=== PATIENT | male | born 1965 | race African-American/Black ===

== ENCOUNTER 2018-11-17 17:36 | Emergency (ER) | payer MEDICAID ==
[~2018-11-17] VITALS: Ht 177.8 cm; Wt 90.0 kg
[2018-11-17] MEDS ORDERED: KETOROLAC 60MG/2ML VIAL IM ONE (18:30)
[2018-11-17 22:10] VITALS: BP 175/98
[2018-11-17] MEDS ORDERED: HYDROCODONE/ACETAMINOPHEN 5/325MG TABLET PO ONE (22:30)
== END 2018-11-18 00:30 | disposition home or self-care (01) ==
LOC: ER 17:36
DX: S22.32XA Fracture of one rib, left side, initial encounter for closed fracture (principal); S09.8XXA Other specified injuries of head, initial encounter; E11.9 Type 2 diabetes mellitus without complications; I10 Essential (primary) hypertension; W01.0XXA Fall on same level from slipping, tripping and stumbling without subsequent striking against object, initial encounter; Y93.89 Activity, other specified; Y92.89 Other specified places as the place of occurrence of the external cause; Y99.8 Other external cause status
CPT/HCPCS: 70450; 71045; 71250; 72125; 96372; 99284; J1885

== ENCOUNTER 2019-06-09 17:12 | Inpatient (IN) | payer MEDICAID ==
[~2019-06-09] VITALS: Ht 175.3 cm; Wt 95.3 kg
[2019-06-09] MEDS ORDERED: CLINDAMYCIN 900 MG in DEXTROSE 5% WATER 50 ML IV ONE (23:15)
[2019-06-09] MEDS ORDERED: SODIUM CHLORIDE 0.9% 500 ML IV ONE (23:15)
[2019-06-09] MEDS ORDERED: CLONIDINE 0.3MG TABLET PO ONE (23:15)
[2019-06-09] MEDS ORDERED: HYDROCODONE/ACETAMINOPHEN 5/325MG TABLET PO ONE (23:15)
[2019-06-09] MEDS ORDERED: KETOROLAC 30MG/ML VIAL IV ONE (23:15)
[2019-06-09 23:34] LABS: CHLORIDE 100 mEq/L (98-107)
[2019-06-09 23:36] LABS: BASOPHILS % 1.1 % (0.0-2.0); EOSINOPHILS % 4.2 % (0.0-5.0); HEMATOCRIT. 36.1 % (42.0-52.0); HEMOGLOBIN. 11.9 g/dL (14.0-18.0); LYMPHOCYTES % 31.6 % (20.0-50.0); MEAN CORPUSCULAR HEMOGLOBIN 28.3 pg (28.0-32.0); MEAN CORPUSCULAR VOLUME 85.7 fL (80.0-94.0); MONOCYTES % 12.6 % (2.0-8.0); NEUTROPHILS % 50.5 % (40.0-76.0); PLATELET 195 x1000/uL (130-400); RED BLOOD CELL COUNT 4.22 mill/uL (4.7-6.1); RED CELL DISTRIBUTION WIDTH 13.5 % (11.6-14.6)
[2019-06-10] MEDS ORDERED: SODIUM CHLORIDE 0.9% 1,000 ML IV ONE (03:00)
[2019-06-10] MEDS ORDERED: INSULIN LISPRO 100 UNITS/ML SUBCUT ONE (03:00)
[2019-06-10] MEDS ORDERED: FUROSEMIDE 20MG/2ML VIAL IVP ONE (04:45)
[2019-06-10] MEDS ORDERED: DEXTROSE 50% WATER 50ML SYRINGE IV PRN (10:00)
[2019-06-10 10:26] VITALS: BP 132/85
[2019-06-10 12:00] VITALS: BP 131/85
[2019-06-10] MEDS: BLOOD SUGAR DIAGNOSTIC STRIP TEST SCH ×3 (12:40→21:00)
[2019-06-10] MEDS: INSULIN LISPRO 100 UNITS/ML SUBCUT SCH ×3 (14:14→21:00)
[2019-06-10 16:00] VITALS: BP 123/65
[2019-06-10] MEDS ORDERED: ACETAMINOPHEN 325MG TABLET PO PRN (16:15)
[2019-06-10] MEDS ORDERED: ONDANSETRON HCL 4MG/2ML INJ IV PRN (16:15)
[2019-06-10] MEDS ORDERED: LORAZEPAM 0.5MG TABLET PO PRN (16:15)
[2019-06-10] MEDS ORDERED: DOCUSATE SODIUM 100MG CAPSULE PO PRN (16:15)
[2019-06-10] MEDS ORDERED: HYDROCODONE/ACETAMINOPHEN 5/325MG TABLET PO PRN (16:15)
[2019-06-10] MEDS ORDERED: CLONIDINE 0.1MG TABLET PO PRN (16:15)
[2019-06-10] MEDS ORDERED: IPRATROPIUM/ALBUTEROL 0.5-3(2.5)MG/3ML NEB INH PRN (16:15)
[2019-06-10] MEDS: LISINOPRIL 5MG TABLET PO SCH (16:53)
[2019-06-10] MEDS ORDERED: PNEUMOCOCCAL 23-VAL P-SAC VAC 0.5 ML IM ONE (19:00)
[2019-06-10 19:40] LABS: CREATINE KINASE MB FRACTION 2.8 ng/mL (0.5-3.6)
[2019-06-10 20:00] VITALS: BP 131/75
[2019-06-10 20:23] LABS: CLARITY URINE CLEAR (CLEAR); COLOR URINE YELLOW (YELLOW); KETONES URINE NEGATIVE (NEGATIVE); LEUKOCYTE ESTERASE URINE NEGATIVE (NEGATIVE); NITRITE URINE NEGATIVE (NEGATIVE); OCCULT BLOOD URINE TRACE (NEGATIVE); PH URINE 7.5 (4.5-8.0); PROTEIN URINE 3+ (NEGATIVE); UROBILINOGEN URINE 0.2 E.U./dL (0.2-1.0)
[2019-06-10 20:49] LABS: *AMPHETAMINES SCREEN URINE NEGATIVE (NEGATIVE); *BARBITURATES SCREEN URINE NEGATIVE (NEGATIVE); *BENZODIAZEPINES SCREEN URINE NEGATIVE (NEGATIVE); *COCAINE SCREEN URINE NEGATIVE (NEGATIVE); METHADONE URINE SCREEN NEGATIVE (NEGATIVE); OPIATES URINE SCREEN NEGATIVE (NEGATIVE)
[2019-06-10 20:50] LABS: CANNABINOID URINE SCREEN NEGATIVE (NEGATIVE); PHENCYCLIDINE URINE SCREEN NEGATIVE (NEGATIVE)
[2019-06-10] MEDS: INSULIN GLARGINE UD 100 UNITS/ML SYR SUBCUT SCH (22:29)
[2019-06-11 00:05] VITALS: BP 127/69
[2019-06-11 04:00] VITALS: BP 132/69
[2019-06-11 05:32] LABS: CHLORIDE 104 mEq/L (98-107)
[2019-06-11 06:10] LABS: BASOPHILS % 1.1 % (0.0-2.0); EOSINOPHILS % 5.8 % (0.0-5.0); HEMATOCRIT. 34.7 % (42.0-52.0); HEMOGLOBIN. 11.6 g/dL (14.0-18.0); LYMPHOCYTES % 33.5 % (20.0-50.0); MEAN CORPUSCULAR HEMOGLOBIN 28.8 pg (28.0-32.0); MEAN CORPUSCULAR VOLUME 86.2 fL (80.0-94.0); MONOCYTES % 10.7 % (2.0-8.0); NEUTROPHILS % 48.9 % (40.0-76.0); PLATELET 189 x1000/uL (130-400); RED BLOOD CELL COUNT 4.02 mill/uL (4.7-6.1); RED CELL DISTRIBUTION WIDTH 13.2 % (11.6-14.6)
[2019-06-11] MEDS: BLOOD SUGAR DIAGNOSTIC STRIP TEST SCH ×2 (07:37→13:18)
[2019-06-11 08:00] VITALS: BP 156/76
[2019-06-11] MEDS: LISINOPRIL 5MG TABLET PO SCH (09:23)
[2019-06-11] MEDS: INSULIN LISPRO 100 UNITS/ML SUBCUT SCH ×2 (09:24→13:34)
[2019-06-11] MEDS: INSULIN GLARGINE UD 100 UNITS/ML SYR SUBCUT SCH (10:22)
[2019-06-11] MEDS ORDERED: ATOR20TA65 MT (13:53)
[2019-06-11] MEDS ORDERED: LANTUSUD SUBCUT (13:53)
[2019-06-11] MEDS ORDERED: LISI-186 PO (13:53)
[2019-06-11] MEDS ORDERED: METF-414 MT (13:53)
[2019-06-11 16:33] VITALS: BP 152/87
== END 2019-06-11 18:29 | disposition home or self-care (01) | DRG 361 ==
LOC: ER 17:12 → 7WST 06-10 02:52 → ENRESERV 06-10 07:00
PROVIDERS: ADMIT Internal Medicine; ATTEND Internal Medicine
PROC: 0KBV0ZZ Excision of Right Foot Muscle, Open Approach (ICD-10-PCS; principal; 2019-06-11)
PROC: 0HBMXZZ Excision of Right Foot Skin, External Approach (ICD-10-PCS; 2019-06-11)
PROC: 0HBMXZZ Excision of Right Foot Skin, External Approach (ICD-10-PCS; 2019-06-11)
PROC: 0HBMXZZ Excision of Right Foot Skin, External Approach (ICD-10-PCS; 2019-06-11)
PROC: 0HBMXZZ Excision of Right Foot Skin, External Approach (ICD-10-PCS; 2019-06-11)
DX: E11.621 Type 2 diabetes mellitus with foot ulcer (principal); L97.509 Non-pressure chronic ulcer of other part of unspecified foot with unspecified severity; E11.42 Type 2 diabetes mellitus with diabetic polyneuropathy; E66.01 Morbid (severe) obesity due to excess calories; E11.65 Type 2 diabetes mellitus with hyperglycemia; I42.9 Cardiomyopathy, unspecified; E87.5 Hyperkalemia; E78.5 Hyperlipidemia, unspecified; D64.9 Anemia, unspecified; I10 Essential (primary) hypertension; J98.11 Atelectasis; D72.821 Monocytosis (symptomatic); I16.1 Hypertensive emergency; S90.414A Abrasion, right lesser toe(s), initial encounter; W18.39XA Other fall on same level, initial encounter; R79.89 Other specified abnormal findings of blood chemistry; L08.9 Local infection of the skin and subcutaneous tissue, unspecified; Z68.31 Body mass index [BMI] 31.0-31.9, adult; Z79.4 Long term (current) use of insulin; Z79.899 Other long term (current) drug therapy; Z79.84 Long term (current) use of oral hypoglycemic drugs; Z86.73 Personal history of transient ischemic attack (TIA), and cerebral infarction without residual deficits; Z71.3 Dietary counseling and surveillance; Z91.81 History of falling; Y93.89 Activity, other specified; Y92.89 Other specified places as the place of occurrence of the external cause; Y99.8 Other external cause status
CPT/HCPCS: 36415; 71045; 73630; 73721; 80048; 80061; 80305; 82550; 82553; 82728; 82962; 83036; 83540; 83550; 83880; 84132; 84443; 84484; 87070; 87075; 90732; 93005; 93306; 96374; 99285; J1815; J1885; J1940; J3490; J7040; J7060

== ENCOUNTER 2019-07-12 13:50 | Inpatient (IN) | payer MEDICAID ==
[~2019-07-12] VITALS: Ht 175.3 cm; Wt 111.1 kg
[~2019-07-12 13:50] MED LIST: ATOR20TA65 MT; LANTUSUD SUBCUT; LISI-186 PO; METF-414 MT
[2019-07-12 16:04] LABS: BASOPHILS % 0.7 % (0.0-2.0); EOSINOPHILS % 5.2 % (0.0-5.0); HEMATOCRIT. 32.6 % (42.0-52.0); HEMOGLOBIN. 10.8 g/dL (14.0-18.0); LYMPHOCYTES % 29.4 % (20.0-50.0); MEAN CORPUSCULAR HEMOGLOBIN 28.1 pg (28.0-32.0); MEAN CORPUSCULAR VOLUME 84.8 fL (80.0-94.0); MEAN PLATELET VOLUME 9.1 fl (7.4-10.4); MONOCYTES % 9.6 % (2.0-8.0); NEUTROPHILS % 55.1 % (40.0-76.0); PLATELET 197 x1000/uL (130-400); RED BLOOD CELL COUNT 3.85 mill/uL (4.7-6.1); RED CELL DISTRIBUTION WIDTH 13.6 % (11.6-14.6)
[2019-07-12 16:09] LABS: CHLORIDE 108 mEq/L (98-107)
[2019-07-12] MEDS ORDERED: PIPERACILLIN/TAZ 3.375G PREMIX 50 ML IV ONE (16:30)
[2019-07-12] MEDS ORDERED: SODIUM CHLORIDE 0.9% 1000ML BAG (SEPSIS BOLUS) IV ONE (16:30)
[2019-07-12] MEDS ORDERED: VANCOMYCIN 1 G PREMIX 200 ML IV SCH (16:30)
[2019-07-12 17:20] LABS: D-DIMER 0.57 mg/L FEU (<0.50)
[2019-07-12] MEDS ORDERED: ONDANSETRON HCL 4MG/2ML INJ IV PRN (18:00)
[2019-07-12] MEDS ORDERED: LORAZEPAM 0.5MG TABLET PO PRN (18:00)
[2019-07-12] MEDS ORDERED: IPRATROPIUM/ALBUTEROL 0.5-3(2.5)MG/3ML NEB INH PRN (18:00)
[2019-07-12] MEDS ORDERED: ACETAMINOPHEN 325MG TABLET PO PRN (18:00)
[2019-07-12 19:15] VITALS: BP 175/98
[2019-07-12] MEDS ORDERED: IOHEXOL-350 100 ML BOTTLE ONE (19:25)
[2019-07-12] MEDS ORDERED: FUROSEMIDE 40MG/4ML VIAL IVP SCH (19:45)
[2019-07-12 20:00] VITALS: BP 175/98
[2019-07-12] MEDS: ATORVASTATIN CALCIUM 20MG TABLET PO SCH (21:43)
[2019-07-12] MEDS: LISINOPRIL 5MG TABLET PO SCH (21:44)
[2019-07-12] MEDS: HYDROCODONE/ACETAMINOPHEN 5/325MG TABLET PO PRN (21:45)
[2019-07-12 21:50] LABS: CLARITY URINE CLEAR (CLEAR); COLOR URINE YELLOW (YELLOW); KETONES URINE NEGATIVE (NEGATIVE); LEUKOCYTE ESTERASE URINE NEGATIVE (NEGATIVE); NITRITE URINE NEGATIVE (NEGATIVE); OCCULT BLOOD URINE 1+ (NEGATIVE); PROTEIN URINE 3+ (NEGATIVE); SPECIFIC GRAVITY URINE 1.018 (1.005-1.030); UROBILINOGEN URINE 0.2 E.U./dL (0.2-1.0)
[2019-07-12 22:08] LABS: *AMPHETAMINES SCREEN URINE NEGATIVE (NEGATIVE); *BARBITURATES SCREEN URINE NEGATIVE (NEGATIVE); *BENZODIAZEPINES SCREEN URINE NEGATIVE (NEGATIVE)
[2019-07-12 22:09] LABS: *COCAINE SCREEN URINE NEGATIVE (NEGATIVE); METHADONE URINE SCREEN NEGATIVE (NEGATIVE); OPIATES URINE SCREEN NEGATIVE (NEGATIVE); PHENCYCLIDINE URINE SCREEN NEGATIVE (NEGATIVE)
[2019-07-12 22:10] LABS: CANNABINOID URINE SCREEN NEGATIVE (NEGATIVE)
[2019-07-12] MEDS: CLONIDINE 0.1MG TABLET PO PRN (23:31)
[2019-07-13] VITALS: BP 178/108
[2019-07-13 04:00] VITALS: BP 144/90
[2019-07-13] MEDS ORDERED: DEXTROSE 50% WATER 50ML SYRINGE IV PRN (04:45)
[2019-07-13 06:27] LABS: BASOPHILS % 1.5 % (0.0-2.0); EOSINOPHILS % 4.9 % (0.0-5.0); HEMATOCRIT. 32.9 % (42.0-52.0); HEMOGLOBIN. 10.8 g/dL (14.0-18.0); LYMPHOCYTES % 28.1 % (20.0-50.0); MEAN CORPUSCULAR HEMOGLOBIN 28.1 pg (28.0-32.0); MEAN CORPUSCULAR VOLUME 85.4 fL (80.0-94.0); MEAN PLATELET VOLUME 9.2 fl (7.4-10.4); MONOCYTES % 10.9 % (2.0-8.0); NEUTROPHILS % 54.6 % (40.0-76.0); PLATELET 190 x1000/uL (130-400); RED BLOOD CELL COUNT 3.85 mill/uL (4.7-6.1); RED CELL DISTRIBUTION WIDTH 13.7 % (11.6-14.6)
[2019-07-13] MEDS: VANCOMYCIN 1 G PREMIX 200 ML IV SCH ×2 (06:29→18:27)
[2019-07-13 06:36] LABS: CHLORIDE 109 mEq/L (98-107)
[2019-07-13] MEDS: BLOOD SUGAR DIAGNOSTIC STRIP TEST SCH ×4 (06:48→21:10)
[2019-07-13] MEDS: INSULIN LISPRO 100 UNITS/ML SUBCUT SCH ×4 (06:53→21:09)
[2019-07-13 08:00] VITALS: BP 142/83
[2019-07-13] MEDS ORDERED: FUROSEMIDE 40MG/4ML VIAL IVP SCH (09:00)
[2019-07-13] MEDS: LISINOPRIL 5MG TABLET PO SCH (09:03)
[2019-07-13] MEDS: ENOXAPARIN 30MG/0.3ML SYR SUBCUT SCH ×2 (09:04→21:09)
[2019-07-13] MEDS ORDERED: INSULIN GLARGINE UD 100 UNITS/ML SYR SUBCUT SCH (10:00)
[2019-07-13 12:00] VITALS: BP 147/81
[2019-07-13] MEDS: HYDROCODONE/ACETAMINOPHEN 5/325MG TABLET PO PRN ×2 (15:12→21:10)
[2019-07-13] MEDS ORDERED: LISI10TA5 MT (15:37)
[2019-07-13] MEDS ORDERED: ASPI-1158 MT (15:37)
[2019-07-13] MEDS ORDERED: FURO20TA4 MT (15:37)
[2019-07-13 16:00] VITALS: BP 140/84
[2019-07-13] MEDS: FUROSEMIDE 40MG/4ML VIAL IVP SCH (18:27)
[2019-07-13 20:00] VITALS: BP 182/101
[2019-07-13] MEDS: ATORVASTATIN CALCIUM 20MG TABLET PO SCH (21:09)
[2019-07-13] MEDS: CLONIDINE 0.1MG TABLET PO PRN (21:10)
[2019-07-14] VITALS: BP 141/78
[2019-07-14 04:00] VITALS: BP 153/91
[2019-07-14 05:41] LABS: CHLORIDE 104 mEq/L (98-107)
[2019-07-14 05:54] LABS: VANCOMYCIN TROUGH 13.8 ug/mL (5.0-10.0)
[2019-07-14] MEDS: VANCOMYCIN 1 G PREMIX 200 ML IV SCH (06:08)
[2019-07-14] MEDS: BLOOD SUGAR DIAGNOSTIC STRIP TEST SCH ×2 (06:10→11:41)
[2019-07-14] MEDS: INSULIN LISPRO 100 UNITS/ML SUBCUT SCH ×2 (06:16→12:20)
[2019-07-14 08:17] VITALS: BP 163/100
[2019-07-14] MEDS: HYDROCODONE/ACETAMINOPHEN 5/325MG TABLET PO PRN (08:26)
[2019-07-14] MEDS: LISINOPRIL 5MG TABLET PO SCH (08:26)
[2019-07-14] MEDS: FUROSEMIDE 40MG/4ML VIAL IVP SCH (08:26)
[2019-07-14] MEDS: ENOXAPARIN 30MG/0.3ML SYR SUBCUT SCH (08:27)
[2019-07-14] MEDS ORDERED: INSULIN GLARGINE UD 100 UNITS/ML SYR SUBCUT SCH (11:00)
[2019-07-14 12:00] VITALS: BP 179/106
[2019-07-14] MEDS: CLONIDINE 0.1MG TABLET PO PRN (14:36)
[2019-07-14 14:37] VITALS: BP 152/96
[2019-07-14] MEDS ORDERED: LISINOPRIL 10MG TABLET PO SCH (21:00)
[2019-07-15] MEDS ORDERED: FUROSEMIDE 40MG TABLET PO SCH (09:00)
== END 2019-07-14 15:18 | disposition home or self-care (01) | DRG 383 ==
LOC: ER 13:50 → 5WST 17:19 → EDBEDREQ 17:22 → ENRESERV 17:40 → CANRESERV 17:40
PROVIDERS: ADMIT Internal Medicine; ATTEND Internal Medicine
PROC: 0JBQ0ZZ Excision of Right Foot Subcutaneous Tissue and Fascia, Open Approach (ICD-10-PCS; principal; 2019-07-13)
DX: L03.115 Cellulitis of right lower limb (principal); I50.33 Acute on chronic diastolic (congestive) heart failure; E46 Unspecified protein-calorie malnutrition; E11.621 Type 2 diabetes mellitus with foot ulcer; E11.42 Type 2 diabetes mellitus with diabetic polyneuropathy; E87.2 Acidosis; E66.01 Morbid (severe) obesity due to excess calories; E87.5 Hyperkalemia; I11.0 Hypertensive heart disease with heart failure; E11.65 Type 2 diabetes mellitus with hyperglycemia; E78.5 Hyperlipidemia, unspecified; X58.XXXA Exposure to other specified factors, initial encounter; D72.821 Monocytosis (symptomatic); S90.811A Abrasion, right foot, initial encounter; I16.1 Hypertensive emergency; I87.8 Other specified disorders of veins; J98.11 Atelectasis; D64.9 Anemia, unspecified; E86.0 Dehydration; I25.10 Atherosclerotic heart disease of native coronary artery without angina pectoris; Z79.4 Long term (current) use of insulin; Z86.73 Personal history of transient ischemic attack (TIA), and cerebral infarction without residual deficits; Y93.89 Activity, other specified; Y92.89 Other specified places as the place of occurrence of the external cause; Y99.8 Other external cause status; Z71.3 Dietary counseling and surveillance; Z68.36 Body mass index [BMI] 36.0-36.9, adult
CPT/HCPCS: 36415; 71045; 71275; 80048; 80061; 80202; 80305; 81003; 82728; 82962; 83036; 83540; 83550; 83605; 83880; 84145; 84484; 85379; 86850; 86900; 93005; 93923; 93970; 96365; 99291; J1650; J1815; J1940; J2543; J3370; J7030; Q9967

== ENCOUNTER 2019-08-31 15:09 | Emergency (ER) | payer MEDICAID ==
[~2019-08-31] VITALS: Ht 175.3 cm; Wt 96.0 kg
[~2019-08-31 15:09] MED LIST changes: +ASPI-1158 MT; +FURO20TA4 MT; -LISI-186 PO; +LISI10TA5 MT
[2019-08-31] MEDS ORDERED: CEFTRIAXONE SODIUM 1 G/VIAL IM ONE (18:30)
[2019-08-31] MEDS ORDERED: LIDOCAINE HCL 1% 20ML VIAL (Pyxis) INJ INFIL ONE (18:45)
[2019-08-31 19:12] VITALS: BP 169/92
== END 2019-08-31 19:14 | disposition home or self-care (01) ==
LOC: ER 15:09
DX: L03.115 Cellulitis of right lower limb (principal); I73.9 Peripheral vascular disease, unspecified; I87.2 Venous insufficiency (chronic) (peripheral); E11.22 Type 2 diabetes mellitus with diabetic chronic kidney disease; N18.9 Chronic kidney disease, unspecified; Z79.82 Long term (current) use of aspirin; Z79.84 Long term (current) use of oral hypoglycemic drugs
CPT/HCPCS: 93970; 96372; 99284; J0696; J3490; Z7610

== ENCOUNTER 2019-09-26 14:56 | Emergency (ER) | payer MEDICAID ==
[~2019-09-26] VITALS: Ht 175.3 cm; Wt 111.0 kg
[2019-09-26] MEDS ORDERED: VANCOMYCIN 1 G PREMIX 200 ML IV ONE (17:30)
[2019-09-26] MEDS ORDERED: PIPERACILLIN/TAZ 3.375G PREMIX 50 ML IV ONE (17:30)
[2019-09-26 18:10] LABS: BASOPHILS % 1.8 % (0.0-2.0); EOSINOPHILS % 3.4 % (0.0-5.0); HEMATOCRIT. 34.5 % (42.0-52.0); HEMOGLOBIN. 11.2 g/dL (14.0-18.0); LYMPHOCYTES % 17.9 % (20.0-50.0); MEAN CORPUSCULAR HEMOGLOBIN 27.6 pg (28.0-32.0); MEAN CORPUSCULAR VOLUME 84.8 fL (80.0-94.0); MEAN PLATELET VOLUME 10.3 fl (7.4-10.4); MONOCYTES % 7.7 % (2.0-8.0); NEUTROPHILS % 69.2 % (40.0-76.0); PLATELET 227 x1000/uL (130-400); RED BLOOD CELL COUNT 4.07 mill/uL (4.7-6.1); RED CELL DISTRIBUTION WIDTH 13.5 % (11.6-14.6)
[2019-09-26 18:14] LABS: CLARITY URINE CLEAR (CLEAR); COLOR URINE YELLOW (YELLOW); KETONES URINE NEGATIVE (NEGATIVE); LEUKOCYTE ESTERASE URINE NEGATIVE (NEGATIVE); NITRITE URINE NEGATIVE (NEGATIVE); OCCULT BLOOD URINE NEGATIVE (NEGATIVE); PROTEIN URINE 3+ (NEGATIVE); UROBILINOGEN URINE 0.2 E.U./dL (0.2-1.0)
[2019-09-26 18:17] LABS: INR 0.9; PROTHROMBIN TIME 9.7 sec (9.6-11.0)
[2019-09-26 18:18] LABS: CHLORIDE 93 mEq/L (98-107)
[2019-09-26] MEDS ORDERED: SODIUM CHLORIDE 0.9% 1,000 ML IV ONE ×2 (18:30)
[2019-09-26] MEDS ORDERED: ASPIRIN 81MG TABLET PO ONE (19:00)
[2019-09-26] MEDS ORDERED: HEPARIN 5000 UNITS/ML VIAL IV NR (19:00)
[2019-09-26] MEDS ORDERED: INSULIN LISPRO 100 UNITS/ML SUBCUT ONE (19:15)
[2019-09-26] MEDS ORDERED: LABETALOL 5MG/ML SYR 20 MG/4 ML SYRINGE IV ONE (19:15)
[2019-09-26] MEDS ORDERED: MORPHINE SULFATE 4 MG/ML CPJ (NOT FOR IM USE) IV ONE (19:15)
[2019-09-26 19:20] VITALS: BP 159/109
== END 2019-09-26 19:33 | disposition short-term general hospital (02) ==
LOC: ER 14:56 → CANBEDREQ 19:02 → ER 19:33
DX: I21.3 ST elevation (STEMI) myocardial infarction of unspecified site (principal); E11.621 Type 2 diabetes mellitus with foot ulcer; E11.65 Type 2 diabetes mellitus with hyperglycemia; A41.9 Sepsis, unspecified organism; I16.1 Hypertensive emergency; M79.10 Myalgia, unspecified site; Z79.899 Other long term (current) drug therapy
CPT/HCPCS: 36415; 71045; 73630; 80053; 81003; 83605; 84145; 85025; 85610; 85651; 86140; 87040; 87086; 93005; 96365; 96366; 96372; 96375; 99285; J1644; J1815; J2270; J2543; J3370; J3490; J7030; Z7610

== ENCOUNTER 2019-09-29 09:05 | Inpatient (IN) | payer MEDICAID ==
[~2019-09-29] VITALS: Ht 175.3 cm; Wt 98.0 kg
[2019-09-29 10:24] LABS: BASOPHILS % 0.4 % (0.0-2.0); EOSINOPHILS % 4.3 % (0.0-5.0); HEMATOCRIT. 38.3 % (42.0-52.0); HEMOGLOBIN. 12.5 g/dL (14.0-18.0); LYMPHOCYTES % 26.6 % (20.0-50.0); MEAN CORPUSCULAR HEMOGLOBIN 27.2 pg (28.0-32.0); MEAN CORPUSCULAR VOLUME 83.4 fL (80.0-94.0); MEAN PLATELET VOLUME 10.1 fl (7.4-10.4); NEUTROPHILS % 61.7 % (40.0-76.0); PLATELET 258 x1000/uL (130-400); RED BLOOD CELL COUNT 4.59 mill/uL (4.7-6.1); RED CELL DISTRIBUTION WIDTH 13.7 % (11.6-14.6)
[2019-09-29 10:31] LABS: CHLORIDE 100 mEq/L (98-107)
[2019-09-29 10:32] LABS: PROTHROMBIN TIME 10.2 sec (9.6-11.0)
[2019-09-29] MEDS ORDERED: SODIUM CHLORIDE 0.9% 1,000 ML IV ONE (11:19)
[2019-09-29] MEDS ORDERED: VANCOMYCIN 1 G PREMIX 200 ML IV SCH (12:15)
[2019-09-29] MEDS ORDERED: INSULIN REGULAR (HUMULIN R) 300UNITS/3ML IV ONE (13:45)
[2019-09-29 18:24] VITALS: BP 147/68
[2019-09-29] MEDS ORDERED: DEXTROSE 50% WATER 50ML SYRINGE IV PRN (19:00)
[2019-09-29 20:00] VITALS: BP 169/91
[2019-09-29 20:30] VITALS: BP 151/88
[2019-09-29] MEDS: ENOXAPARIN 30MG/0.3ML SYR SUBCUT SCH (20:39)
[2019-09-29] MEDS: ATORVASTATIN CALCIUM 20MG TABLET PO SCH (20:39)
[2019-09-29] MEDS: LISINOPRIL 10MG TABLET PO SCH (20:40)
[2019-09-29] MEDS: HYDROCODONE/ACETAMINOPHEN 5/325MG TABLET PO PRN (20:41)
[2019-09-29] MEDS: BLOOD SUGAR DIAGNOSTIC STRIP TEST SCH (20:42)
[2019-09-29] MEDS: INSULIN LISPRO 100 UNITS/ML SUBCUT SCH (20:42)
[2019-09-29] MEDS: VANCOMYCIN 1250MG in DEXTROSE 5% WATER 250ML IV SCH (21:46)
[2019-09-30] VITALS: BP 121/69
[2019-09-30 04:00] VITALS: BP 130/80
[2019-09-30] MEDS: CEFTRIAXONE 2 G in DEXTROSE 5% WATER 50 ML IV SCH (05:59)
[2019-09-30 06:00] LABS: BASOPHILS % 1.6 % (0.0-2.0); EOSINOPHILS % 5.5 % (0.0-5.0); HEMATOCRIT. 33.9 % (42.0-52.0); HEMOGLOBIN. 11.8 g/dL (14.0-18.0); LYMPHOCYTES % 40.7 % (20.0-50.0); MEAN CORPUSCULAR HEMOGLOBIN 28.8 pg (28.0-32.0); MEAN CORPUSCULAR VOLUME 82.6 fL (80.0-94.0); MONOCYTES % 10.5 % (2.0-8.0); NEUTROPHILS % 41.7 % (40.0-76.0); PLATELET 224 x1000/uL (130-400); RED CELL DISTRIBUTION WIDTH 13.7 % (11.6-14.6)
[2019-09-30] MEDS ORDERED: CEFTRIAXONE 2 G in DEXTROSE 5% WATER 50 ML IV SCH (06:00)
[2019-09-30 06:21] LABS: CHLORIDE 101 mEq/L (98-107)
[2019-09-30 06:31] LABS: LDL CHOLESTEROL 92 mg/dL (5-100)
[2019-09-30 06:33] LABS: HDL CHOLESTEROL 35 mg/dL (40-59)
[2019-09-30] MEDS: BLOOD SUGAR DIAGNOSTIC STRIP TEST SCH ×4 (07:32→21:28)
[2019-09-30 08:00] VITALS: BP 124/82
[2019-09-30] MEDS: INSULIN LISPRO 100 UNITS/ML SUBCUT SCH ×4 (08:39→21:23)
[2019-09-30] MEDS: ASPIRIN 81MG EC TABLET PO SCH (08:40)
[2019-09-30] MEDS: FUROSEMIDE 20MG TABLET PO SCH (08:40)
[2019-09-30] MEDS: ENOXAPARIN 30MG/0.3ML SYR SUBCUT SCH ×2 (08:40→21:21)
[2019-09-30] MEDS: LISINOPRIL 10MG TABLET PO SCH ×2 (08:40→21:22)
[2019-09-30] MEDS: INSULIN GLARGINE UD 100 UNITS/ML SYR SUBCUT SCH (10:55)
[2019-09-30 12:00] VITALS: BP 124/82
[2019-09-30] MEDS: VANCOMYCIN 1250MG in DEXTROSE 5% WATER 250ML IV SCH (15:39)
[2019-09-30 15:49] VITALS: BP 106/58
[2019-09-30] MEDS: HYDROCODONE/ACETAMINOPHEN 5/325MG TABLET PO PRN (17:30)
[2019-09-30 20:14] VITALS: BP 119/73
[2019-09-30] MEDS: ATORVASTATIN CALCIUM 20MG TABLET PO SCH (21:29)
[2019-10-01] VITALS (7 sets, daily range): BP systolic 109–147; BP diastolic 50–98
[2019-10-01] MEDS: HYDROCODONE/ACETAMINOPHEN 5/325MG TABLET PO PRN ×3 (01:05→21:28)
[2019-10-01] MEDS: CEFTRIAXONE 2 G in DEXTROSE 5% WATER 50 ML IV SCH (05:11)
[2019-10-01 06:44] LABS: CHLORIDE 103 mEq/L (98-107)
[2019-10-01] MEDS: BLOOD SUGAR DIAGNOSTIC STRIP TEST SCH ×4 (06:49→21:28)
[2019-10-01] MEDS: FUROSEMIDE 20MG TABLET PO SCH (09:40)
[2019-10-01] MEDS: ENOXAPARIN 30MG/0.3ML SYR SUBCUT SCH ×2 (09:40→21:27)
[2019-10-01] MEDS: VANCOMYCIN 1250MG in DEXTROSE 5% WATER 250ML IV SCH (09:40)
[2019-10-01] MEDS: ASPIRIN 81MG EC TABLET PO SCH (09:40)
[2019-10-01] MEDS: LISINOPRIL 10MG TABLET PO SCH ×2 (09:41→21:28)
[2019-10-01] MEDS: INSULIN LISPRO 100 UNITS/ML SUBCUT SCH ×4 (09:51→21:30)
[2019-10-01] MEDS: INSULIN GLARGINE UD 100 UNITS/ML SYR SUBCUT SCH (10:06)
[2019-10-01] MEDS: ATORVASTATIN CALCIUM 20MG TABLET PO SCH (21:28)
[2019-10-02 00:05] VITALS: BP 117/60
[2019-10-02] MEDS: VANCOMYCIN 1250MG in DEXTROSE 5% WATER 250ML IV SCH ×2 (03:01→21:21)
[2019-10-02 04:00] VITALS: BP 141/80
[2019-10-02] MEDS: CEFTRIAXONE 2 G in DEXTROSE 5% WATER 50 ML IV SCH (05:20)
[2019-10-02] MEDS: BLOOD SUGAR DIAGNOSTIC STRIP TEST SCH ×4 (06:39→21:18)
[2019-10-02 07:26] LABS: BASOPHILS % 1.3 % (0.0-2.0); EOSINOPHILS % 6.4 % (0.0-5.0); HEMATOCRIT. 33.2 % (42.0-52.0); HEMOGLOBIN. 10.9 g/dL (14.0-18.0); LYMPHOCYTES % 45.7 % (20.0-50.0); MEAN CORPUSCULAR VOLUME 81.9 fL (80.0-94.0); MEAN PLATELET VOLUME 9.6 fl (7.4-10.4); MONOCYTES % 9.5 % (2.0-8.0); NEUTROPHILS % 37.1 % (40.0-76.0); PLATELET 223 x1000/uL (130-400); RED BLOOD CELL COUNT 4.05 mill/uL (4.7-6.1); RED CELL DISTRIBUTION WIDTH 13.4 % (11.6-14.6)
[2019-10-02 08:40] VITALS: BP 104/70
[2019-10-02] MEDS ORDERED: SODIUM BICARBONATE 4% (2.4MEQ) 5ML VIAL IV ONE (10:53)
[2019-10-02] MEDS ORDERED: LIDOCAINE HCL 1% 20ML VIAL (Pyxis) INJ ONE (10:53)
[2019-10-02] MEDS: ENOXAPARIN 30MG/0.3ML SYR SUBCUT SCH ×2 (11:52→21:20)
[2019-10-02] MEDS: FUROSEMIDE 20MG TABLET PO SCH (11:53)
[2019-10-02] MEDS: ASPIRIN 81MG EC TABLET PO SCH (11:54)
[2019-10-02] MEDS: LISINOPRIL 10MG TABLET PO SCH ×2 (11:54→21:17)
[2019-10-02] MEDS: HYDROCODONE/ACETAMINOPHEN 5/325MG TABLET PO PRN (11:54)
[2019-10-02] MEDS: INSULIN GLARGINE UD 100 UNITS/ML SYR SUBCUT SCH (11:55)
[2019-10-02] MEDS: INSULIN LISPRO 100 UNITS/ML SUBCUT SCH ×4 (12:00→21:16)
[2019-10-02 12:27] VITALS: BP 131/69
[2019-10-02] MEDS ORDERED: HEPARIN 100 UNITS/1 ML VIAL IVF PRN (12:45)
[2019-10-02 16:39] VITALS: BP 133/85
[2019-10-02 20:00] VITALS: BP 152/86
[2019-10-02] MEDS: ATORVASTATIN CALCIUM 20MG TABLET PO SCH (21:17)
[2019-10-03 00:44] VITALS: BP 133/80
[2019-10-03 04:00] VITALS: BP 132/65
[2019-10-03] MEDS: CEFTRIAXONE 2 G in DEXTROSE 5% WATER 50 ML IV SCH (06:26)
[2019-10-03] MEDS: HYDROCODONE/ACETAMINOPHEN 5/325MG TABLET PO PRN ×3 (06:26→21:18)
[2019-10-03] MEDS: BLOOD SUGAR DIAGNOSTIC STRIP TEST SCH ×4 (06:40→21:16)
[2019-10-03 06:49] LABS: BASOPHILS % 1.3 % (0.0-2.0); EOSINOPHILS % 6.9 % (0.0-5.0); HEMOGLOBIN. 10.9 g/dL (14.0-18.0); LYMPHOCYTES % 29.8 % (20.0-50.0); MEAN CORPUSCULAR HEMOGLOBIN 27.5 pg (28.0-32.0); MEAN PLATELET VOLUME 9.5 fl (7.4-10.4); MONOCYTES % 10.5 % (2.0-8.0); NEUTROPHILS % 51.5 % (40.0-76.0); PLATELET 212 x1000/uL (130-400); RED BLOOD CELL COUNT 3.97 mill/uL (4.7-6.1); RED CELL DISTRIBUTION WIDTH 13.4 % (11.6-14.6)
[2019-10-03 07:06] LABS: CHLORIDE 105 mEq/L (98-107)
[2019-10-03 08:00] VITALS: BP 152/89
[2019-10-03] MEDS: FUROSEMIDE 20MG TABLET PO SCH (08:52)
[2019-10-03] MEDS: LISINOPRIL 10MG TABLET PO SCH ×2 (08:53→21:15)
[2019-10-03] MEDS: ASPIRIN 81MG EC TABLET PO SCH (08:53)
[2019-10-03] MEDS: ENOXAPARIN 30MG/0.3ML SYR SUBCUT SCH ×2 (08:54→21:16)
[2019-10-03] MEDS: INSULIN LISPRO 100 UNITS/ML SUBCUT SCH ×4 (08:56→21:14)
[2019-10-03] MEDS: INSULIN GLARGINE UD 100 UNITS/ML SYR SUBCUT SCH (11:18)
[2019-10-03 12:00] VITALS: BP 108/62
[2019-10-03 16:00] VITALS: BP 107/68
[2019-10-03] MEDS ORDERED: NON FORMULARY PATIENT HOME MED XX SCH (17:00)
[2019-10-03 20:00] VITALS: BP 150/83
[2019-10-03] MEDS: ATORVASTATIN CALCIUM 20MG TABLET PO SCH (21:15)
[2019-10-04] VITALS (7 sets, daily range): BP systolic 121–174; BP diastolic 52–104
[2019-10-04] MEDS: HYDROCODONE/ACETAMINOPHEN 5/325MG TABLET PO PRN ×3 (04:12→12:27)
[2019-10-04] MEDS: ACETAMINOPHEN 650MG/20.3ML UDC PO PRN (04:13)
[2019-10-04] MEDS: CEFTRIAXONE 2 G in DEXTROSE 5% WATER 50 ML IV SCH (05:37)
[2019-10-04] MEDS: BLOOD SUGAR DIAGNOSTIC STRIP TEST SCH ×4 (06:36→21:00)
[2019-10-04 07:08] LABS: BASOPHILS % 1.9 % (0.0-2.0); HEMOGLOBIN. 10.9 g/dL (14.0-18.0); LYMPHOCYTES % 39.9 % (20.0-50.0); MEAN CORPUSCULAR HEMOGLOBIN 27.2 pg (28.0-32.0); MEAN CORPUSCULAR VOLUME 82.5 fL (80.0-94.0); MONOCYTES % 10.9 % (2.0-8.0); NEUTROPHILS % 40.3 % (40.0-76.0); PLATELET 225 x1000/uL (130-400); RED CELL DISTRIBUTION WIDTH 13.3 % (11.6-14.6)
[2019-10-04] MEDS: INSULIN LISPRO 100 UNITS/ML SUBCUT SCH ×4 (08:12→22:03)
[2019-10-04] MEDS: ENOXAPARIN 30MG/0.3ML SYR SUBCUT SCH ×2 (08:15→22:03)
[2019-10-04] MEDS: FUROSEMIDE 20MG TABLET PO SCH (08:15)
[2019-10-04] MEDS: ASPIRIN 81MG EC TABLET PO SCH (08:16)
[2019-10-04] MEDS: LISINOPRIL 10MG TABLET PO SCH ×2 (08:16→22:04)
[2019-10-04] MEDS: INSULIN GLARGINE UD 100 UNITS/ML SYR SUBCUT SCH (10:10)
[2019-10-04] MEDS: CEFEPIME 2,000 MG in DEXT 5% WATER 100 ML IV SCH ×2 (14:27→22:04)
[2019-10-04] MEDS: ATORVASTATIN CALCIUM 20MG TABLET PO SCH (22:04)
[2019-10-05 00:33] VITALS: BP 115/79
[2019-10-05] MEDS: ACETAMINOPHEN 650MG/20.3ML UDC PO PRN ×2 (00:48→05:34)
[2019-10-05] MEDS: HYDROCODONE/ACETAMINOPHEN 5/325MG TABLET PO PRN ×3 (00:49→09:38)
[2019-10-05 04:00] VITALS: BP 174/96
[2019-10-05] MEDS ORDERED: CLONIDINE 0.1MG TABLET PO PRN (05:45)
[2019-10-05] MEDS: BLOOD SUGAR DIAGNOSTIC STRIP TEST SCH ×3 (06:39→17:30)
[2019-10-05 06:42] LABS: BASOPHILS % 1.2 % (0.0-2.0); EOSINOPHILS % 6.9 % (0.0-5.0); HEMATOCRIT. 33.7 % (42.0-52.0); LYMPHOCYTES % 31.4 % (20.0-50.0); MEAN CORPUSCULAR HEMOGLOBIN 27.1 pg (28.0-32.0); MEAN CORPUSCULAR VOLUME 82.9 fL (80.0-94.0); MEAN PLATELET VOLUME 9.8 fl (7.4-10.4); MONOCYTES % 10.4 % (2.0-8.0); NEUTROPHILS % 50.1 % (40.0-76.0); PLATELET 213 x1000/uL (130-400); RED BLOOD CELL COUNT 4.06 mill/uL (4.7-6.1); RED CELL DISTRIBUTION WIDTH 13.7 % (11.6-14.6)
[2019-10-05 08:00] VITALS: BP 157/93
[2019-10-05] MEDS: CEFEPIME 2,000 MG in DEXT 5% WATER 100 ML IV SCH (08:32)
[2019-10-05] MEDS: ENOXAPARIN 30MG/0.3ML SYR SUBCUT SCH (08:33)
[2019-10-05] MEDS: FUROSEMIDE 20MG TABLET PO SCH (08:33)
[2019-10-05] MEDS: ASPIRIN 81MG EC TABLET PO SCH (08:34)
[2019-10-05] MEDS: LISINOPRIL 10MG TABLET PO SCH (08:34)
[2019-10-05] MEDS: INSULIN LISPRO 100 UNITS/ML SUBCUT SCH ×3 (09:33→17:36)
[2019-10-05] MEDS: INSULIN GLARGINE UD 100 UNITS/ML SYR SUBCUT SCH (09:36)
[2019-10-05 12:00] VITALS: BP 136/84
[2019-10-05] MEDS ORDERED: HYDROCODONE/ACETAMINOPHEN 5/325MG TABLET PO PRN (12:15)
[2019-10-05 13:40] VITALS: BP 136/84
[2019-10-05] MEDS ORDERED: MEROPENEM 1,000 MG in SODIUM CHLORIDE 0.9% 100 ML IV SCH (16:00)
== END 2019-10-05 19:20 | DRG 344 ==
LOC: ER 09:05 → 6WST 13:24 → CANRESERV 16:04 → ENRESERV 16:04
PROVIDERS: ADMIT Internal Medicine; ATTEND Internal Medicine
PROC: 05HY33Z Insertion of Infusion Device into Upper Vein, Percutaneous Approach (ICD-10-PCS; principal; 2019-10-02)
PROC: B54MZZZ Ultrasonography of Right Upper Extremity Veins (ICD-10-PCS; 2019-10-02)
PROC: B51M1ZZ Fluoroscopy of Right Upper Extremity Veins using Low Osmolar Contrast (ICD-10-PCS; 2019-10-02)
DX: E11.69 Type 2 diabetes mellitus with other specified complication (principal); M86.8X7 Other osteomyelitis, ankle and foot; N17.9 Acute kidney failure, unspecified; E11.40 Type 2 diabetes mellitus with diabetic neuropathy, unspecified; E11.621 Type 2 diabetes mellitus with foot ulcer; E11.51 Type 2 diabetes mellitus with diabetic peripheral angiopathy without gangrene; E11.65 Type 2 diabetes mellitus with hyperglycemia; L97.519 Non-pressure chronic ulcer of other part of right foot with unspecified severity; E66.9 Obesity, unspecified; I10 Essential (primary) hypertension; E78.5 Hyperlipidemia, unspecified; I70.201 Unspecified atherosclerosis of native arteries of extremities, right leg; Z59.0 Homelessness; Z79.4 Long term (current) use of insulin; Z79.899 Other long term (current) drug therapy; Z79.82 Long term (current) use of aspirin; Z68.31 Body mass index [BMI] 31.0-31.9, adult
CPT/HCPCS: 36415; 36573; 73721; 76937; 80048; 80061; 80202; 82962; 83036; 87070; 87077; 87186; 93923; 96361; 96365; 97162; 99285; C1725; C1893; J0692; J0696; J1642; J1650; J1815; J2185; J3370; J3490; J7030; J7040; J7050; J7060

== ENCOUNTER 2020-10-10 20:23 | Inpatient (IN) | payer MEDICAID ==
[~2020-10-10] VITALS: Ht 175.3 cm; Wt 116.6 kg
[~2020-10-10 20:23] MED LIST changes: +ACET-2708 MT; +AMLO5TAB88 PO; -FURO20TA4 MT; +ISOS30TA6 PO; -LISI10TA5 MT; +METO25TA6 PO; +OMEG-118 MT
[2020-10-10 22:01] LABS: BASOPHILS % 1.7 % (0.0-2.0); EOSINOPHILS % 3.2 % (0.0-5.0); HEMATOCRIT. 31.4 % (42.0-52.0); HEMOGLOBIN. 10.3 g/dL (14.0-18.0); LYMPHOCYTES % 24.6 % (20.0-50.0); MEAN CORPUSCULAR HEMOGLOBIN 27.2 pg (28.0-32.0); MEAN CORPUSCULAR VOLUME 82.9 fL (80.0-94.0); MEAN PLATELET VOLUME 8.2 fl (7.4-10.4); MONOCYTES % 12.5 % (2.0-8.0); PLATELET 320 x1000/uL (130-400); RED BLOOD CELL COUNT 3.79 mill/uL (4.7-6.1); RED CELL DISTRIBUTION WIDTH 14.2 % (11.6-14.6)
[2020-10-10 22:05] LABS: CHLORIDE 109 mEq/L (98-107)
[2020-10-11] VITALS (7 sets, daily range): BP systolic 114–172; BP diastolic 75–96
[2020-10-11] MEDS ORDERED: INSU100I24 SQ (03:20)
[2020-10-11] MEDS ORDERED: INSLIS SUBCUT (03:20)
[2020-10-11] MEDS ORDERED: DEXTROSE 50% WATER 50ML SYRINGE IV PRN (03:45)
[2020-10-11] MEDS ORDERED: NITROGLYCERIN 0.4MG TABLET SL SL PRN (03:45)
[2020-10-11] MEDS: METOPROLOL TARTRATE 50MG TABLET PO SCH ×2 (04:47→21:46)
[2020-10-11] MEDS: BLOOD SUGAR DIAGNOSTIC STRIP TEST SCH ×4 (06:08→21:49)
[2020-10-11] MEDS: INSULIN LISPRO 100 UNITS/ML SUBCUT SCH ×4 (06:57→21:49)
[2020-10-11] MEDS: ENOXAPARIN 30MG/0.3ML SYR SUBCUT SCH ×2 (09:15→21:47)
[2020-10-11] MEDS: INSULIN GLARGINE UD 100 UNITS/ML SYR SUBCUT SCH ×2 (09:24→21:55)
[2020-10-11 09:43] LABS: BASOPHILS % 0.9 % (0.0-2.0); EOSINOPHILS % 4.4 % (0.0-5.0); HEMOGLOBIN. 9.2 g/dL (14.0-18.0); LYMPHOCYTES % 25.3 % (20.0-50.0); MEAN CORPUSCULAR HEMOGLOBIN 27.4 pg (28.0-32.0); MEAN CORPUSCULAR VOLUME 83.5 fL (80.0-94.0); MEAN PLATELET VOLUME 8.1 fl (7.4-10.4); NEUTROPHILS % 56.4 % (40.0-76.0); PLATELET 266 x1000/uL (130-400); RED BLOOD CELL COUNT 3.36 mill/uL (4.7-6.1); RED CELL DISTRIBUTION WIDTH 14.1 % (11.6-14.6)
[2020-10-11] MEDS: FUROSEMIDE 40MG/4ML VIAL IVP SCH ×2 (10:19→16:54)
[2020-10-11] MEDS: ASPIRIN 81MG EC TABLET PO SCH (12:10)
[2020-10-11] MEDS ORDERED: HYDRALAZINE HCL 25MG TABLET PO SCH (14:00)
[2020-10-11] MEDS: ATORVASTATIN CALCIUM 20MG TABLET PO SCH (21:46)
[2020-10-11] MEDS: HYDRALAZINE HCL 100MG TABLET PO SCH (22:26)
[2020-10-12] VITALS: BP 125/55
[2020-10-12 04:00] VITALS: BP 138/74
[2020-10-12] MEDS: FUROSEMIDE 40MG/4ML VIAL IVP SCH ×3 (06:25→17:00)
[2020-10-12] MEDS: HYDRALAZINE HCL 100MG TABLET PO SCH ×3 (06:27→21:20)
[2020-10-12] MEDS: INSULIN LISPRO 100 UNITS/ML SUBCUT SCH ×4 (06:42→21:22)
[2020-10-12] MEDS: BLOOD SUGAR DIAGNOSTIC STRIP TEST SCH ×4 (06:42→21:23)
[2020-10-12 08:00] VITALS: BP 130/74
[2020-10-12] MEDS: ASPIRIN 81MG EC TABLET PO SCH (09:15)
[2020-10-12] MEDS: METOPROLOL TARTRATE 50MG TABLET PO SCH ×2 (09:15→21:21)
[2020-10-12] MEDS: INSULIN GLARGINE UD 100 UNITS/ML SYR SUBCUT SCH ×2 (09:16→21:22)
[2020-10-12] MEDS: ENOXAPARIN 30MG/0.3ML SYR SUBCUT SCH ×2 (09:16→21:21)
[2020-10-12 11:33] VITALS: BP 130/60
[2020-10-12 15:56] VITALS: BP 128/68
[2020-10-12 20:00] VITALS: BP 150/72
[2020-10-12] MEDS: ATORVASTATIN CALCIUM 20MG TABLET PO SCH (21:20)
[2020-10-13] VITALS: BP 140/73
[2020-10-13] MEDS: FUROSEMIDE 40MG/4ML VIAL IVP SCH ×2 (01:03→09:04)
[2020-10-13 04:00] VITALS: BP 136/55
[2020-10-13] MEDS: HYDRALAZINE HCL 100MG TABLET PO SCH ×2 (05:46→13:29)
[2020-10-13] MEDS: BLOOD SUGAR DIAGNOSTIC STRIP TEST SCH ×2 (05:47→12:03)
[2020-10-13] MEDS: INSULIN LISPRO 100 UNITS/ML SUBCUT SCH ×2 (05:47→12:11)
[2020-10-13 06:39] LABS: BASOPHILS % 1.3 % (0.0-2.0); EOSINOPHILS % 3.3 % (0.0-5.0); HEMATOCRIT. 29.3 % (42.0-52.0); HEMOGLOBIN. 9.6 g/dL (14.0-18.0); LYMPHOCYTES % 27.3 % (20.0-50.0); MEAN CORPUSCULAR HEMOGLOBIN 26.8 pg (28.0-32.0); MEAN CORPUSCULAR VOLUME 82.3 fL (80.0-94.0); MEAN PLATELET VOLUME 8.2 fl (7.4-10.4); MONOCYTES % 11.9 % (2.0-8.0); NEUTROPHILS % 56.2 % (40.0-76.0); PLATELET 290 x1000/uL (130-400); RED BLOOD CELL COUNT 3.57 mill/uL (4.7-6.1); RED CELL DISTRIBUTION WIDTH 14.2 % (11.6-14.6)
[2020-10-13 08:00] VITALS: BP 139/73
[2020-10-13] MEDS: ASPIRIN 81MG EC TABLET PO SCH (09:03)
[2020-10-13] MEDS: METOPROLOL TARTRATE 50MG TABLET PO SCH (09:03)
[2020-10-13] MEDS: ENOXAPARIN 30MG/0.3ML SYR SUBCUT SCH (09:06)
[2020-10-13] MEDS: INSULIN GLARGINE UD 100 UNITS/ML SYR SUBCUT SCH (09:30)
[2020-10-13 12:00] VITALS: BP 157/85
[2020-10-13] MEDS ORDERED: ATOR20TA PO (12:38)
[2020-10-13] MEDS ORDERED: HYDR100T26 PO (12:38)
[2020-10-13] MEDS ORDERED: METO-539 PO (12:38)
[2020-10-13] MEDS ORDERED: FURO40TA5 PO (12:38)
[2020-10-13] MEDS ORDERED: LANTUSUD SUBCUT (12:38)
[2020-10-13 16:00] VITALS: BP 150/74
[2020-10-13] MEDS ORDERED: ATOR20TA MT ×2 (16:13→16:15)
[2020-10-13] MEDS ORDERED: HYDR100T26 MT ×2 (16:13→16:15)
[2020-10-13] MEDS ORDERED: FURO-151 MT ×2 (16:13→16:15)
[2020-10-13] MEDS ORDERED: INSU100I28 SQ ×2 (16:13→16:15)
[2020-10-13] MEDS ORDERED: METO-539 MT ×2 (16:13→16:15)
[2020-10-13 16:21] VITALS: BP 150/74
[2020-10-13] MEDS ORDERED: FUROSEMIDE 40MG TABLET PO SCH (18:00)
== END 2020-10-13 17:05 | disposition home or self-care (01) | DRG 133 ==
LOC: ER 20:23 → 5WST 23:40 → EDBEDREQSVC 10-11 00:10 → EDBEDREQTM 10-11 00:10 → ENRESERV 10-11 02:04
PROVIDERS: ADMIT Internal Medicine; ATTEND Internal Medicine
DX: J96.01 Acute respiratory failure with hypoxia (principal); I13.0 Hypertensive heart and chronic kidney disease with heart failure and stage 1 through stage 4 chronic kidney disease, or unspecified chronic kidney disease; E11.22 Type 2 diabetes mellitus with diabetic chronic kidney disease; E11.65 Type 2 diabetes mellitus with hyperglycemia; E43 Unspecified severe protein-calorie malnutrition; I50.33 Acute on chronic diastolic (congestive) heart failure; N17.9 Acute kidney failure, unspecified; N18.9 Chronic kidney disease, unspecified; E78.5 Hyperlipidemia, unspecified; E66.9 Obesity, unspecified; E87.5 Hyperkalemia; D64.9 Anemia, unspecified; E11.51 Type 2 diabetes mellitus with diabetic peripheral angiopathy without gangrene; E87.8 Other disorders of electrolyte and fluid balance, not elsewhere classified; I08.1 Rheumatic disorders of both mitral and tricuspid valves; I27.20 Pulmonary hypertension, unspecified; Z79.4 Long term (current) use of insulin; Z79.82 Long term (current) use of aspirin; Z79.899 Other long term (current) drug therapy; Z68.38 Body mass index [BMI] 38.0-38.9, adult; Z71.3 Dietary counseling and surveillance; Z86.73 Personal history of transient ischemic attack (TIA), and cerebral infarction without residual deficits
CPT/HCPCS: 36415; 71045; 80048; 80053; 80061; 82962; 83036; 83880; 84484; 85025; 93005; 99285; J1650; J1815; J1940

== ENCOUNTER 2021-12-03 10:54 | Emergency (ER) | payer MEDICAID, OTHER ==
[~2021-12-03] VITALS: Ht 175.3 cm; Wt 104.0 kg
[~2021-12-03 10:54] MED LIST changes: -ACET-2708 MT; -ASPI-1158 MT; +ASPI-1406 MT; +ATOR20TA MT; +ATOR20TA PO; -ATOR20TA65 MT; +FURO-151 MT; +FURO40TA5 PO; +HYDR100T26 MT; +HYDR100T26 PO; +INSLIS SUBCUT; +INSU100I24 SQ; +INSU100I28 SQ; -ISOS30TA6 PO; -METF-414 MT; +METO-539 MT; +METO-539 PO; -METO25TA6 PO
[2021-12-03 11:18] VITALS: BP 174/81
[2021-12-03] MEDS ORDERED: TETRACAINE 0.5% OPHTH DROPS 4ML LEFTEYE ONE (11:45)
[2021-12-03] MEDS ORDERED: FLUORESCEIN SODIUM 1MG/STRIP LEFTEYE ONE (11:45)
== END 2021-12-03 14:00 | disposition home or self-care (01) ==
LOC: ER 10:54
DX: E11.319 Type 2 diabetes mellitus with unspecified diabetic retinopathy without macular edema (principal)
CPT/HCPCS: 82962; 99283

== ENCOUNTER 2022-02-13 09:07 | Emergency (ER) | payer OTHER ==
[~2022-02-13] VITALS: Ht 175.3 cm; Wt 102.0 kg
[2022-02-13] MEDS ORDERED: KETOROLAC 30MG/ML VIAL IM ONE (10:45)
[2022-02-13] MEDS ORDERED: NAPR-1176 MT (10:52)
[2022-02-13] MEDS ORDERED: CYCL5TAB MT (10:52)
[2022-02-13 11:19] VITALS: BP 174/94
== END 2022-02-13 11:39 | disposition home or self-care (01) ==
LOC: ER 09:07
DX: S16.1XXA Strain of muscle, fascia and tendon at neck level, initial encounter (principal); S39.012A Strain of muscle, fascia and tendon of lower back, initial encounter; I11.0 Hypertensive heart disease with heart failure; I50.9 Heart failure, unspecified; E11.9 Type 2 diabetes mellitus without complications; Z79.899 Other long term (current) drug therapy; V49.9XXA Car occupant (driver) (passenger) injured in unspecified traffic accident, initial encounter; Y93.89 Activity, other specified; Y92.89 Other specified places as the place of occurrence of the external cause; Y99.8 Other external cause status
CPT/HCPCS: 96372; 99283; J1885

== ENCOUNTER 2022-03-17 21:33 | Emergency (ER) | payer OTHER ==
[~2022-03-17] VITALS: Ht 175.3 cm; Wt 102.1 kg
[~2022-03-17 21:33] MED LIST changes: +CYCL5TAB MT; +NAPR-1176 MT
[2022-03-17 21:39] VITALS: BP 192/98
[2022-03-17] MEDS ORDERED: METHYLPREDNISOLONE SOD SUCC 125 MG/2 ML VIAL IM ONE (22:30)
[2022-03-18] MEDS ORDERED: METHYLPREDNISOLONE SOD SUCC 125 MG/2 ML VIAL IM NR (00:45)
[2022-03-18] MEDS ORDERED: FAMOTIDINE 20MG TABLET PO NR (01:56)
[2022-03-18] MEDS ORDERED: DIPHENHYDRAMINE 25MG CAPSULE PO ONE (02:00)
[2022-03-18] MEDS ORDERED: DIPH25CA83 PO (02:06)
[2022-03-18] MEDS ORDERED: P50 PO (02:06)
== END 2022-03-18 02:58 | disposition home or self-care (01) ==
LOC: ER 21:33
DX: K14.0 Glossitis (principal); R22.0 Localized swelling, mass and lump, head; E11.9 Type 2 diabetes mellitus without complications; I10 Essential (primary) hypertension; Z79.4 Long term (current) use of insulin; Z79.82 Long term (current) use of aspirin
CPT/HCPCS: 87070; 87430; 96372; 99283; J2930; Q0163

== ENCOUNTER 2023-06-20 09:26 | Emergency (ER) | payer MEDICAID, OTHER ==
[~2023-06-20] VITALS: Ht 175.3 cm; Wt 103.0 kg
[~2023-06-20 09:26] MED LIST changes: +DIPH25CA83 PO; +P50 PO
[2023-06-20 09:34] VITALS: TEMP 98.6; O2SAT 98
[2023-06-20 10:10] LABS: CLARITY URINE CLEAR (CLEAR); COLOR URINE YELLOW (YELLOW); GLUCOSE URINE 3+ (NEGATIVE); KETONES URINE NEGATIVE (NEGATIVE); LEUKOCYTE ESTERASE URINE NEGATIVE (NEGATIVE); NITRITE URINE NEGATIVE (NEGATIVE); OCCULT BLOOD URINE 1+ (NEGATIVE); PROTEIN URINE 4+ (NEGATIVE); SPECIFIC GRAVITY URINE 1.022 (1.005-1.030); UROBILINOGEN URINE 0.2 E.U./dL (0.2-1.0)
[2023-06-20 10:20] LABS: BASOPHILS % 1.2 % (0.0-2.0); EOSINOPHILS % 3.6 % (0.0-5.0); HEMATOCRIT. 39.2 % (42.0-52.0); HEMOGLOBIN. 12.9 g/dL (14.0-18.0); LYMPHOCYTES % 30.1 % (20.0-50.0); MEAN CORPUSCULAR HEMOGLOBIN 27.2 pg (28.0-32.0); MEAN CORPUSCULAR HGB CONC 32.8 g/dL (31.0-37.0); MEAN PLATELET VOLUME 10.1 fl (7.4-10.4); MONOCYTES % 8.3 % (2.0-8.0); NEUTROPHILS % 56.8 % (40.0-76.0); PLATELET 236 x1000/uL (130-400); RED BLOOD CELL COUNT 4.72 mill/uL (4.7-6.1); RED CELL DISTRIBUTION WIDTH 14.4 % (11.6-14.6); WHITE BLOOD COUNT 4.8 x1000/uL (4.5-11.0)
[2023-06-20 10:29] LABS: CHLORIDE 100 mEq/L (98-107); INDEX HEMOLYSI 1 (1-3); INDEX ICTERIC 1 (1-4); INDEX LIPEMIC 1 (1-3); POTASSIUM 4.4 mEq/L (3.5-5.1); SODIUM 132 mEq/L (136-145)
[2023-06-20 10:35] LABS: PROTHROMBIN TIME 10.3 sec (9.6-11.0)
[2023-06-20 10:37] LABS: BACTERIA URINE NONE SEEN; RBC URINE 0-2 /hpf (0-2); WBC URINE 0-2 /hpf (0-2)
[2023-06-20 10:37] LABS: ALANINE AMINOTRANSFERASE 21 IU/L (13-61); ALBUMIN 2.3 g/dL (3.4-5.0); ASPARTATE AMINOTRANSFERASE 16 IU/L (15-37); BILIRUBIN TOTAL 0.3 mg/dL (0.1-1.0); CALCIUM 8.5 mg/dL (8.5-10.1); CARBON DIOXIDE 26 mEq/L (21-32); PROTEIN TOTAL 6.5 g/dL (6.0-8.3); TROPONIN I HIGH SENSITIVITY 49 ng/L (<78); UREA NITROGEN BLOOD 39 mg/dL (7-21)
[2023-06-20 11:14] LABS: GLUCOSE 563 mg/dL (70-105)
[2023-06-20] MEDS ORDERED: MORPHINE SULFATE 4 MG/ML CPJ (NOT FOR IM USE) IV STA (13:33)
[2023-06-20] MEDS ORDERED: ONDANSETRON HCL 4MG/2ML INJ IV STA (13:33)
[2023-06-20] MEDS ORDERED: ASPIRIN 81MG TABLET PO ONE (13:45)
[2023-06-20] MEDS ORDERED: NITROGLYCERIN OINT 1GM/INCH UDPKT TD ONE (13:45)
[2023-06-20 14:25] LABS: TROPONIN I HIGH SENSITIVITY 42 ng/L (<78)
[2023-06-20] MEDS ORDERED: INSULIN REGULAR (HUMULIN R) 300UNITS/3ML VIAL SUBCUT ONE (17:15)
[2023-06-20 18:31] VITALS: BP 167/95; PULSE 61; RESP 17
[2023-06-21 12:26] LABS: *AMPHETAMINES SCREEN URINE NEGATIVE (NEGATIVE); *BARBITURATES SCREEN URINE NEGATIVE (NEGATIVE); *BENZODIAZEPINES SCREEN URINE NEGATIVE (NEGATIVE); *COCAINE SCREEN URINE NEGATIVE (NEGATIVE); CANNABINOID URINE SCREEN NEGATIVE (NEGATIVE); ECSTASY MDMA SCREEN URINE NEGATIVE (NEGATIVE); METHADONE URINE SCREEN NEGATIVE (NEGATIVE); OPIATES URINE SCREEN NEGATIVE (NEGATIVE); PHENCYCLIDINE URINE SCREEN NEGATIVE (NEGATIVE)
== END 2023-06-20 18:55 | disposition short-term general hospital (02) ==
LOC: ER 10:18
DX: R05.9 Cough, unspecified (principal); R09.81 Nasal congestion; E11.9 Type 2 diabetes mellitus without complications; I10 Essential (primary) hypertension; Z20.822 Contact with and (suspected) exposure to COVID-19
CPT/HCPCS: 80053; 80305; 81003; 82962; 83930; 83935; 85025; 85610; 84484; 36415; 71045; 93005; 96372; 96374; 96375; 99285; 87426; Z7610 ×3; J1815; J2405; J2270; C9803